=== PATIENT | male | born 1945 | race Caucasian/White ===

== ENCOUNTER → 2021-06-30 | Outpatient (CLI) | payer OTHER ==
[~2021-06-30] MED LIST: ALLEGRA ALLERG180 MG PO; COZAAR 50 MG TA50 M1 PO; HYDROCHLOROTHIA25 M1 PO; LIPITOR 40 MG T40 M1 PO; NASACORT10.8 ML NARES; PREDNISONE 10 M10 MG PO; VITAMIN B-121000 MC2 SUBLING; VITAMIN C500 M1 PO; VITAMIN D325 MC5 PO; VITAMIN E1000 UNIT PO; ZETIA10 MG PO
== END ==
LOC: LAB 10:05
PROVIDERS: ATTEND Student in an Organized Health Care Education/Training Program
DX: Z20.822 Contact with and (suspected) exposure to COVID-19 (principal)

== ENCOUNTER → 2021-07-02 | Outpatient (CLI) | payer OTHER ==
[~2021-07-02] VITALS: Ht 185.4 cm; Wt 90.7 kg
--- NOTE | 2021-07-02 14:36 | P ---
[facility] [place] [address] PROCEDURE REPORT Name: DARRELL FOOTE [id number] Admission: 07/02/21 Attend Phys: Lamonte Richardson Discharge: Date of : 49 Report #: [id number] THIS REPORT FOR: cc: Jeffy Lopez MD, Barry C. MD McElhinney, Christian C. MD ~ cc: Orlando Hou MD DATE OF SERVICE: 07/02/2021 PROCEDURE PERFORMED: Colonoscopy with polypectomy. HISTORY OF PRESENT ILLNESS: The patient is a 75-year-old male with a history of colon polyps, last colonoscopy 5 years ago, also has a family history of colon cancer in his sister. He denies any symptoms in general at this time, plan is for colonoscopy. DESCRIPTION OF PROCEDURE: The risks and benefits of the procedure were explained to the patient, those risks including but not limited to bleeding, perforation and the risk of sedation. He understood these risks and gave informed consent. Sedation was given using propofol per Anesthesia. Next, a digital rectal exam was initially performed, which was normal. Next, using a standard Olympus colonoscope, the scope was placed in the patient's anus and advanced under direct vision to the cecum. The overall prep was excellent. In the cecum, there was a 6 mm sessile polyp. This was removed by snare cautery, otherwise normal. The ileocecal valve was normal. The ascending, transverse and descending colon were normal. A few small scattered diverticula were noted in the sigmoid colon, otherwise normal. The rectal mucosa was normal. On retroflexion, no abnormalities were noted. The scope was then withdrawn and the procedure terminated. The patient tolerated the procedure well. IMPRESSION: 1. Cecal polyp. 2. Sigmoid diverticulosis. 3. Otherwise, normal colonoscopy. RECOMMENDATIONS: 1. Await biopsy results. 2. Repeat colonoscopy in 5 years. Thank you for allowing me to participate in his care. <ELECTRONICALLY SIGNED> By: Lamonte Ceballos MD 07/02/21 1436 [id number] Lamonte Ceballos MD /nt
--- NOTE | 2021-07-04 14:07 | PATH ---
[facility] [address] [place] [address] PATHOLOGY RPT PROCEDURE Name: SHANT FOOTE Room #: REG [facility] M.R.#: [id number] Admission: 07/02/21 Date of : 49 Discharge: Report #: [id number] Path Case #: [id number] [facility] Accession Number: [id number] . 01 Material submitted: . cecum - CECAL POLYP . 01 Clinical history: . DTS/COLONOSCOPY/ HX OF POLYPS; FAM HX OF COLON CA . 02 Diagnosis: Polyp, cecal polyp, endoscopic biopsy: - Tubular adenoma. - Negative for high grade dysplasia. . (IUV:mml; 07/04/2021) QLM 07/04/2021 1215 Local . 02 Electronically signed: . Alycia Juárez MD, Pathologist NPI- [id number] . 01 Gross description: . The specimen is received in formalin, labeled "Hodclaudia, Shant, cecal polyp". Received are 2 segments of pale de la cruz tissue ranging in size from 0.3 to 0.8 cm in maximum dimensions. The specimen is submitted entirely in cassette A1.([facility]; 07/03/2021) [facility] 07/03/2021 1305 Local . 02 Pathologist provided ICD-10: D12.0 . 02 CPT . 893009 Specimen Comment: A courtesy copy of this report has been sent to [phone], [phone] Specimen Comment: [phone], Specimen Comment: Report sent to , DR CHAVES / DR ORTEGA Performed at: [address], [place] [id number] MD Gaurav Torres MD Phone: [phone] Performed at: [address] [id number] MD Alycia Juárez MD Phone: [phone]
== END | disposition home or self-care (01) ==
LOC: GI
PROVIDERS: ATTEND Specialist
DX: Z12.11 Encounter for screening for malignant neoplasm of colon (principal); Z86.010 Personal history of colon polyps; Z80.0 Family history of malignant neoplasm of digestive organs; D12.0 Benign neoplasm of cecum; K57.30 Diverticulosis of large intestine without perforation or abscess without bleeding; I10 Essential (primary) hypertension; E78.5 Hyperlipidemia, unspecified; Z98.890 Other specified postprocedural states; Z79.899 Other long term (current) drug therapy; Z88.2 Allergy status to sulfonamides; Z88.8 Allergy status to other drugs, medicaments and biological substances
CPT/HCPCS: 62110; 62900